=== PATIENT | female | born 1995 | race Caucasian/White ===

== ENCOUNTER 2016-05-12 15:04 | Emergency (ER) | payer BC ==
[2016-05-12 15:16] VITALS: TEMP 97.3
--- NOTE | 2016-05-12 15:19 | EDPHY ---
H & P Time Seen by Provider: 05/12/16 15:18 HPI/ROS: CHIEF COMPLAINT: Episodes of shortness of breath and lightheadedness. HISTORY OF PRESENT ILLNESS: The patient is a 21-year-old female with a history of hypothyroidism who presents with 3 days of lightheadedness and shortness of breath. These symptoms are intermittent and occur suddenly, usually while sitting. She describes it as feeling like she is going to faint and has to slow her breathing to feel better. Sometimes she gets better if she walks around. She has not passed out. She also describes feeling paresthesias in her hands when the symptoms come on. She has had 4 or 5 episodes over the past 3 days. She has no history of similar symptoms. No leg pain, peripheral edema, cough, fever, or other complaints. REVIEW OF SYSTEMS: A complete 10-point review of systems was performed and is negative except for those items mentioned in the HPI. Past Medical/Surgical History: Hypothyroidism, anxiety. Social History: Smoker, no alcohol use, distant cocaine use. Smoking Status: Current every day smoker Physical Exam: General Appearance: Alert, pleasant Eyes: Pupils equal and round, no conjunctival pallor ENT, Mouth: Mucous membranes moist Neck: Normal inspection Respiratory: Lungs are clear to auscultation Cardiovascular: Regular rate and rhythm, no murmur Gastrointestinal: Abdomen is soft and non-tender Neurological: A&O, nonfocal, normal gait Skin: Warm and dry, no rash Extremities: Nontender, no pedal edema Psychiatric: Mood and affect normal Constitutional: Initial Vital Signs Temperature (C) 36.3 C 05/12/16 15:12 Heart Rate 70 05/12/16 15:12 Respiratory Rate 12 05/12/16 15:12 Blood Pressure 131/66 H 05/12/16 15:12 O2 Sat (%) 97 05/12/16 15:12 O2 Delivery Mode Room Air Allergies/Adverse Reactions: No Known Allergies Allergy (Verified 10/20/11 10:40) Home Medications: Medication Instructions Recorded No Medications [NO HOME 1 ea [facility] [place] 05/26/11 MEDICATIONS] Ciprofloxacin [Cipro 250 mg] 250 mg PO BID #6 tab 10/20/11 Medical Decision Making - Diagnostics EKG Interpretation: EKG interpreted by me reveals normal sinus rhythm, normal axis, normal intervals , ST and T segments normal. Interpretation: normal EKG ED Course/Re-evaluation: This patient presents with episodes of dizziness, now asymptomatic. Stat EKG is normal, without dysrhythmia or ischemic changes. I will place her on a channel opener outsoles to evaluate for possible dysrhythmia. Unclear if these episodes are related to serious etiology such as a dysrhythmia (SVT) or to a panic attack. An IV was established and labs ordered. manager women reveals normal sinus rhythm throughout. The patient remained asymptomatic. She will be discharged home and will follow up with her primary care physician. She was strongly encouraged to return to the emergency department for recurrent symptoms or any concerns. Differential Diagnosis: Dizziness including but not limited to dysrhythmia, peripheral and central causes of vertigo, orthostatic causes including dehydration, and blood loss, panic attack. - Data Points Laboratory Results: Laboratory Results 05/12/16 15:50 05/12/16 15:50 Departure - Departure Disposition: Home, Routine, Self-Care Clinical Impression: Dizziness Condition: Good Instructions: Dizziness (ED) Additional Instructions: Call the Emergency Department in the morning for results of your TSH test. The number is [phone]. Call a primary care provider tomorrow morning as well to set up a follow up appointment. If you need one you were given the telephone number of the on-call outpatient doctor. Return to the emergency department for recurrent symptoms. Referrals: Pérez Dominguez MD [Medical Doctor] - 1-2 days without fail Report Scribed for: Madeleine Arias Report Scribed by: Lion Simon Date of Report: 05/12/16 Time of Report: 15:19 Physician Review and Approval Statement: 05/12/16 15:19 Portions of this note were transcribed by a medical radiation therapist. I personally performed a history, physical exam, medical decision making, and confirmed accuracy of information the transcribed note.
--- NOTE | 2016-05-12 15:42 | CPEKG ---
Heart Rate: 62 RR Interval: 968 P-R Interval: 144 QRSD Interval: 80 QT Interval: 416 QTC Interval: 423 P Kinards: -10 QRS Kinards: 36 T Wave Kinards: 18 EKG Severity - NORMAL ECG - EKG Impression: SINUS RHYTHM Electronically Signed By: Madeleine Arias 12-May-2016 21:20:32
[2016-05-12 16:01] LABS: % IMMATURE GRANULYOCYTES 0.3 % (0.0-1.1); ABSOLUTE IMMATURE GRANULOCYTES 0.02 10^3/uL (0.00-0.10); ADD DIFF? NO; ADD MORPH? NO; ADD SCAN? NO; ATYPICAL LYMPHOCYTE FLAG 10 (0-99); FRAGMENT RBC FLAG 0 (0-99); HEMATOCRIT 40.4 % (38.0-47.0); HEMOGLOBIN 13.6 g/dL (12.6-16.3); LEFT SHIFT FLG 0 (0-99); LIPEMIA HEMOLYSIS FLAG 80 (0-99); MEAN CELL HEMOGLOBIN 29.1 pg (27.9-34.1); MEAN CELL HEMOGLOBIN CONCENTR. 33.7 g/dL (32.4-36.7); MEAN CELL VOLUME 86.5 fL (81.5-99.8); MEAN PLATELET VOLUME 10.1 fL (8.7-11.7); PLATELET CLUMPS FLAG 0 (0-99); PLATELET COUNT 341 10^3/uL (150-400); RED BLOOD CELL COUNT 4.67 10^6/uL (4.18-5.33); RED CELL DISTRIBUTION WIDTH 13.4 % (11.5-15.2)
[2016-05-12 16:18] LABS: ANION GAP 10 mEq/L (8-16); CALCIUM 9.4 mg/dL (8.5-10.4); CARBON DIOXIDE 21 mEq/l (22-31); CHLORIDE 110 mEq/L (97-110); CREATININE 0.7 mg/dL (0.6-1.0); GLOMERULAR FILTRATION RATE > 60; GLUCOSE 75 mg/dL (70-100); POTASSIUM 4.1 mEq/L (3.5-5.2); SODIUM 141 mEq/L (134-144)
[2016-05-12 16:55] VITALS: BP 124/54; PULSE 63; RESP 16; O2SAT 96
== END 2016-05-12 16:56 | disposition home or self-care (01) ==
DX: R42 Dizziness and giddiness (principal); F17.200 Nicotine dependence, unspecified, uncomplicated

== ENCOUNTER 2016-09-23 01:08 | Emergency (ER) | payer BC ==
[2016-09-23 01:17] VITALS: TEMP 97.9
--- NOTE | 2016-09-23 01:18 | EDPHY ---
H & P Stated Complaint: SOB x 1 wk after decr smoking, hyperventilated tonight w carpal spasms HPI/ROS: HPI CHIEF COMPLAINT: Shortness of breath, panic attack HISTORY OF PRESENT ILLNESS: This patient is a very pleasant 21-year-old female , she presents emergency room after she started hyperventilating and having a panic attack. She had carpal spasms upon evaluation triage. At triage she was asked to slow her breathing down and her spasm.. Since arriving back into the emergency room in ER room 6 she feels much better. She has clear lung sounds. Good air movement. Not hyperventilating or feeling anxious anymore. She does tell me she thinks she may have had a panic attack prior to arrival. She denies chest pain or shortness of breath at this time. Past Medical History: Panic attacks Past Surgical History: Denies recent surgery Social History: Smokes cigarettes and marijuana she has been trying to cut back , denies illicit drug use or alcohol. Family History: Noncontributory ROS REVIEW OF SYSTEMS: A comprehensive 10 point review of systems is otherwise negative aside from elements mentioned in the history of present illness. Exam Constitutional appears well nontoxic, triage nursing summary reviewed, vital signs reviewed, awake/alert. Eyes normal conjunctivae and sclera, EOMI, PERRLA. HENT normal inspection, atraumatic, moist mucus membranes, no epistaxis, neck supple/ no meningismus, no raccoon eyes. Respiratory clear to auscultation bilaterally, normal breath sounds, no respiratory distress, no wheezing. Cardiovascular tachycardic, regular rhythm, no murmur, no edema, distal pulses normal. Gastrointestinal soft, non-tender, no rebound, no guarding, normal bowel sounds, no distension, no pulsatile mass. Genitourinary no CVA tenderness. Musculoskeletal no midline vertebral tenderness, full range of motion, no calf swelling, no tenderness of extremities, no meningismus, good pulses, neurovascularly intact. Skin pink, warm, & dry, no rash, skin atraumatic. Neurologic awake, alert and oriented x 3, AAOx3, moves all 4 extremities equally, motor intact, sensory intact, CN II-XII intact, normal cerebellar, normal vision, normal speech. Psychiatric normal mood/affect. Heme/Lymph/Immune no lymphadenopathy. Differential Diagnosis: Includes but is not limited to in a particular order acute anxiety attack, panic attack, hyperventilation syndrome Medical Decision Making: Plan for this patient she does feel better since arriving in emergency room she is comp, cooperative, not hyperventilating and no longer has spasms. She is resting comfortably. Was noted slightly tachycardic upon arrival. Will re- evaluate this let her rest. Re-evaluation: 0245AM: ED x-ray chest two view negative for acute cardiopulmonary disease. Image interpreted myself. No pneumothorax. No mass. 0307: Patient is complaining of right-sided pleuritic pain. She tells me it has been progressive for the past month. No hemoptysis. She does smoke and on control. Will obtain a two view chest x-ray, D-dimer. If her D-dimer is positive she will need a CT angiogram of her chest. Patient has a positive D-dimer. Will proceed with CT angiogram chest. Risk factors control, smoking, right-sided pleuritic pain. 0342AM: CT angiogram results showed no pulmonary embolism. Read by Dr. Fermin. Will outpatient go home vital signs are stable. No distress. No chest pain no shortness of breath., cooperative. She understands return emergency room if she has any further questions or concerns. Source: Patient - Personal History LMP (Females 10-55): 22-28 Days Ago Current Tetanus/Diphtheria Vaccine: Yes Current Tetanus Diphtheria and Acellular Pertussis (TDAP): Yes Tetanus Vaccine Date: 2011 - Medical/Surgical History Hx Asthma: No Hx Chronic Respiratory Disease: No Hx Diabetes: No Hx Cardiac Disease: No Hx Renal Disease: No Hx Cirrhosis: No Hx Alcoholism: No Hx HIV/AIDS: No Hx Splenectomy or Spleen Trauma: No Other PMH: hypothyroid - Social History Smoking Status: Current every day smoker Constitutional: Initial Vital Signs Temperature (C) 36.6 C 09/23/16 01:13 Heart Rate 124 H 09/23/16 01:13 Respiratory Rate 16 09/23/16 01:13 Blood Pressure 146/74 H 09/23/16 01:13 O2 Sat (%) 97 09/23/16 01:13 O2 Delivery Mode Room Air Allergies/Adverse Reactions: No Known Allergies Allergy (Verified 09/23/16 01:12) Home Medications: Medication Instructions Recorded Thyroid,Pork [[place] Thyroid] 09/23/16 Medical Decision Making - Data Points Laboratory Results: Laboratory Results 09/23/16 02:26 09/23/16 02:26 09/23/16 09/23/16 09/23/16 02:26 02:26 02:26 WBC 10.09 10^3/uL H 10^3/uL (3.80-9.50) RBC 4.45 10^6/uL 10^6/uL (4.18-5.33) Hgb 13.1 g/dL g/dL (12.6-16.3) Hct 39.0 % % (38.0-47.0) MCV 87.6 fL fL (81.5-99.8) MCH 29.4 pg pg (27.9-34.1) MCHC 33.6 g/dL g/dL (32.4-36.7) RDW 13.4 % % (11.5-15.2) Plt Count 272 10^3/uL 10^3/uL (150-400) MPV 10.4 fL fL (8.7-11.7) Neut % (Auto) 60.2 % % (39.3-74.2) Lymph % (Auto) 30.9 % % (15.0-45.0) [place] % (Auto) 6.1 % % (4.5-13.0) Eos % (Auto) 2.1 % % (0.6-7.6) Baso % (Auto) 0.4 % % (0.3-1.7) Nucleat RBC Rel Count 0.0 % % (0.0-0.2) Absolute Neuts (auto) 6.07 10^3/uL 10^3/uL (1.70-6.50) Absolute Lymphs (auto) 3.12 10^3/uL H 10^3/uL (1.00-3.00) Absolute Monos (auto) 0.62 10^3/uL 10^3/uL (0.30-0.80) Absolute Eos (auto) 0.21 10^3/uL 10^3/uL (0.03-0.40) Absolute Basos (auto) 0.04 10^3/uL 10^3/uL (0.02-0.10) Absolute Nucleated RBC 0.00 10^3/uL 10^3/uL (0-0.01) Immature Gran % 0.3 % % (0.0-1.1) Immature Gran # 0.03 10^3/uL 10^3/uL (0.00-0.10) D-Dimer 0.57 ug/mLFEU H ug/mLFEU (0.00-0.50) Sodium 142 mEq/L mEq/L (134-144) Potassium 3.7 mEq/L mEq/L (3.5-5.2) Chloride 108 mEq/L mEq/L (97-110) Carbon Dioxide 20 mEq/l L mEq/l (22-31) Anion Gap 14 mEq/L mEq/L (8-16) BUN 15 mg/dL mg/dL (7-23) Creatinine 0.8 mg/dL mg/dL (0.6-1.0) Estimated GFR > 60 Glucose 88 mg/dL mg/dL (70-100) Calcium 10.0 mg/dL mg/dL (8.5-10.4) Medications Given: Discontinued Medications Sodium Chloride (Ns) 500 mls @ 1,000 mls/hr IV ONCE ONE PRN Reason: Protocol Stop: 09/23/16 02:43 Last Admin: 09/23/16 02:50 Dose: 500 mls Departure - Departure Disposition: Home, Routine, Self-Care Clinical Impression: Panic attack Condition: Good Instructions: Panic Attack (ED) Additional Instructions: 1. Return emergency room if you have any worsening symptoms questions or concerns. Referrals: NONE *PRIMARY CARE P,. [Primary Care Provider] - As per Instructions
[2016-09-23] MEDS ORDERED: NS 500 ML IV ONE (02:14)
[2016-09-23 02:39] LABS: % IMMATURE GRANULYOCYTES 0.3 % (0.0-1.1); ABSOLUTE IMMATURE GRANULOCYTES 0.03 10^3/uL (0.00-0.10); ADD DIFF? NO; ADD MORPH? NO; ADD SCAN? NO; ATYPICAL LYMPHOCYTE FLAG 0 (0-99); FRAGMENT RBC FLAG 0 (0-99); HEMOGLOBIN 13.1 g/dL (12.6-16.3); LEFT SHIFT FLG 0 (0-99); LIPEMIA HEMOLYSIS FLAG 80 (0-99); MEAN CELL HEMOGLOBIN 29.4 pg (27.9-34.1); MEAN CELL HEMOGLOBIN CONCENTR. 33.6 g/dL (32.4-36.7); MEAN CELL VOLUME 87.6 fL (81.5-99.8); MEAN PLATELET VOLUME 10.4 fL (8.7-11.7); PLATELET CLUMPS FLAG 0 (0-99); PLATELET COUNT 272 10^3/uL (150-400); RED BLOOD CELL COUNT 4.45 10^6/uL (4.18-5.33); RED CELL DISTRIBUTION WIDTH 13.4 % (11.5-15.2)
[2016-09-23 02:55] LABS: ANION GAP 14 mEq/L (8-16); CARBON DIOXIDE 20 mEq/l (22-31); CHLORIDE 108 mEq/L (97-110); CREATININE 0.8 mg/dL (0.6-1.0); GLOMERULAR FILTRATION RATE > 60; GLUCOSE 88 mg/dL (70-100); POTASSIUM 3.7 mEq/L (3.5-5.2); SODIUM 142 mEq/L (134-144)
[2016-09-23 03:00] VITALS: O2SAT 98
[2016-09-23] MEDS ORDERED: IOPAMIDOL (ISOVUE 370) 100 ML BTL IV ONE (03:09)
[2016-09-23 03:58] VITALS: BP 105/55; PULSE 70; RESP 18
== END 2016-09-23 03:56 | disposition home or self-care (01) ==
DX: F41.0 Panic disorder [episodic paroxysmal anxiety] (principal); F17.210 Nicotine dependence, cigarettes, uncomplicated; E86.9 Volume depletion, unspecified
CPT/HCPCS: Q9967